=== PATIENT | male | born 1950 | race Caucasian/White ===

== ENCOUNTER 2019-04-04 06:47 | Day surgery (SDC) | payer MEDICARE, OTHER ==
[2019-04-04] MEDS ORDERED: Propofol 200 MG/20 ML SDV ONE (06:56)
[2019-04-04] MEDS ORDERED: fentaNYL 100 MCG/2 ML SDV ONE (06:56)
[2019-04-04] MEDS ORDERED: Midazolam 1 MG/ML 2 ML SDV ONE (06:56)
[2019-04-04] MEDS ORDERED: Dextrose 5%-Lactated Ringers 1,000 ML IV SCH (07:45)
[2019-04-04 09:59] VITALS: BP 112/73; PULSE 68
--- NOTE | 2019-04-11 11:32 | OR ---
DATE OF PROCEDURE: 04/04/2019 SURGEON: Dru Agudelo MD PREOPERATIVE DIAGNOSIS: History of colon polyps with indications for screening colonoscopy. POSTOPERATIVE DIAGNOSES: 1. History of colon polyps with indications for screening colonoscopy. 2. No recurrent colonic pathology identified. OPERATIVE PROCEDURE: Screening colonoscopy. ANESTHESIA: IV sedation. INDICATION FOR PROCEDURE: This is a 68-year-old male presenting with indications for screening colonoscopy. He has personal history of colon polyps in the past. Plan is to proceed with a colonoscopy with biopsies and/or polypectomy as indicated. Potential risks including bleeding and perforation were discussed, and the patient wishes to proceed. DETAILS OF PROCEDURE: The patient was taken to the operating room and placed in a left lateral decubitus position. IV sedation was administered, after which the initial digital rectal exam was performed and was unremarkable. Colonoscope was then passed into the rectum with retroflexion revealing uncomplicated hemorrhoidal columns. The scope was eventually passed to the cecum. The prep was fairly good with a small amount of liquid and some scattered solid stool present. To that level, no abnormalities were noted, specifically there were no diverticular disease, no areas of colitis, and no polyps or additional signs of neoplasia. Scope was then withdrawn, the above findings reconfirmed, and the procedure then concluded. Given the patient's personal history of colon polyps, next colonoscopy should be planned in 5 years. Dru Agudelo MD /[id number]
== END 2019-04-04 09:59 | disposition home or self-care (01) ==
LOC: JP.SDS 06:47
PROVIDERS: ATTEND Surgery
DX: Z12.11 Encounter for screening for malignant neoplasm of colon (principal); E78.5 Hyperlipidemia, unspecified; K64.9 Unspecified hemorrhoids; R73.01 Impaired fasting glucose; Z86.010 Personal history of colon polyps
CPT/HCPCS: G0121; J2250; J2704; J3010; J7121

== ENCOUNTER 2019-05-02 07:34 | Day surgery (SDC) | payer MEDICARE ==
[2019-05-02] MEDS ORDERED: Propofol 200 MG/20 ML SDV ONE ×4 (07:59→10:07)
[2019-05-02] MEDS ORDERED: fentaNYL 100 MCG/2 ML SDV ONE (07:59)
[2019-05-02] MEDS ORDERED: Midazolam 1 MG/ML 2 ML SDV ONE (07:59)
[2019-05-02] MEDS ORDERED: Dextrose 5%-Lactated Ringers 1,000 ML IV SCH (08:00)
[2019-05-02] MEDS ORDERED: Acetaminophen 500 MG Tab PO ONE (08:15)
[2019-05-02] MEDS ORDERED: Lidocaine 1% with EPINEPHrine 1:100,000 50 ML MDV ONE (08:18)
[2019-05-02] MEDS ORDERED: Bupivacaine 0.5% 50 ML MDV ONE (08:18)
[2019-05-02] MEDS ORDERED: ceFAZolin 2 GM in Premix Bag 1 BAG IV ONE (08:30)
[2019-05-02] MEDS ORDERED: Ketamine 50 MG in Sodium Chloride 0.9% 49.5 ML IV SCH (09:00)
[2019-05-02] MEDS ORDERED: Ropivacaine 46 ML, dexAMETHasone 8 MG, EPINEPHrine 0.4 MG, Sodium Chloride 0.9% 31.6 ML NERVRT SCH ×4 (09:00)
[2019-05-02] MEDS ORDERED: Ketamine 500 MG/5 ML MDV IV SCH (09:00)
[2019-05-02] MEDS ORDERED: Ketorolac 60 MG/2 ML SDV ONE (09:34)
[2019-05-02] MEDS ORDERED: Acetaminophen/oxyCODONE 325-5 MG Tab PO PRN (11:30)
[2019-05-02 12:20] VITALS: BP 116/61; PULSE 65
--- NOTE | 2019-05-09 08:51 | OR ---
DATE OF PROCEDURE: 05/02/2019 SURGEON: Dru Agudelo MD PREOPERATIVE DIAGNOSIS: Right inguinal hernia. POSTOPERATIVE DIAGNOSES: 1. Combined small indirect and prolonged direct right inguinal hernia. 2. 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 OPERATIVE PROCEDURE: Right inguinal exploration with: 1. Repair of right inguinal hernia with mesh (08222). 2. Excision of portion of right ilioinguinal nerve (34667). 3. Excision of portion of right iliohypogastric nerve (43178). ANESTHESIA: Local plus IV sedation. SCOOPING MACHINE TENDER: Bernadette Calvert PA-C INDICATIONS FOR PROCEDURE: This is a 68-year-old male presenting with an increasingly symptomatic right inguinal hernia. Plan is to proceed with a repair with a mesh plug technique. Potential risks of the procedure, including bleeding, infection, injury to underlying viscera, problems with hernia recurring or the mesh becoming infected were reviewed. That we often will divide the nerves in the area to avoid problems with chronic pain secondary to entrapment of those nerves by scar, which would result in some areas of cutaneous anesthesia was also reviewed with the patient, and he wishes to proceed. DETAILS OF PROCEDURE: Patient was taken to the operating room and placed in a supine position. After IV sedation was administered, the right inguinal area was anesthetized with 1% lidocaine mixed with Marcaine. A standard right inguinal incision was made and carried down through the skin and subcutaneous tissue and through the external oblique aponeurosis. Subaponeurotic flaps were then raised superiorly and inferiorly. Both the ilioinguinal nerve and iliohypogastric nerves were in the field, which would be separately covered by the flat portion of mesh plug system and would therefore be at risk for entrapment by scar, resulting in chronic pain. A portion of each of these nerves were then excised with the lateral extent of excision being the far lateral aspect of the incision. The cord structures were then mobilized upward. The patient was noted to have broad direct inguinal hernia and a smaller indirect hernia. The indirect hernia was dissected back down to the level of the internal ring, where it was easily turned inward. Transversalis fascia over the direct portion of the hernia was incised, and dissection of the conjoint tendon laterally, superiorly and inferiorly was undertaken. An extra-large mesh plug was placed into the direct portion of the hernia and affixed to the Tristian's ligament with some titanium tacking screws and affixed to the underside of the conjoint tendon medially, superiorly and laterally with horizontal mattress sutures of 0 Vicryl stitch. This appeared to cover the area of the indirect hernia satisfactorily as well. The conjoint tendon was then affixed to the shelving portion of the inguinal ligament with running 0 Vicryl stitch. The flat portion of mesh plug system was then placed on the inguinal floor and affixed to the pubic tubercle medially with titanium tacking screws and sutured lateral to the cord structures with 4-0 Vicryl stitch. The external oblique aponeurosis was approximated with some 4-0 Vicryl stitch, as was subcutaneous tissue, and the skin closed with 4-0 Vicryl subcuticular stitch. Dressing was applied. The patient was taken to the recovery room in satisfactory condition. There were no evident complications. Physician esl instructional assistant, Bernadette Calvert, played an essential role in assisting in this case helping to position the patient, retract structures as needed, as well as suturing and cutting sutures when indicated. Her presence improved patient safety and decreased operative time. Dru Agudelo MD /[id number]
== END 2019-05-02 12:45 | disposition home or self-care (01) ==
LOC: JP.SDS 07:34
PROVIDERS: ATTEND Surgery
DX: K40.90 Unilateral inguinal hernia, without obstruction or gangrene, not specified as recurrent (principal); G89.29 Other chronic pain
CPT/HCPCS: 88302; A9270-GY; C1713; C1781; J0690; J1885; J2250; J2704; J3010; J3490; J7121

== ENCOUNTER 2024-04-23 21:10 | Inpatient (IN) | payer MEDICARE ==
[2024-04-23 22:08] LABS: BASOPHILS ABSOLUTE AUTO 0.05 K/uL (0.00-0.10); BASOPHILS PERCENT AUTO 0.4 % (0.1-1.3); EOSINOPHILS ABSOLUTE AUTO 0.17 K/uL (0.00-0.40); EOSINOPHILS PERCENT AUTO 1.4 % (0.0-5.4); HEMATOCRIT 37.8 % (38.4-49.7); HEMOGLOBIN 12.6 g/dL (12.9-16.9); IMMATURE GRAN ABSOLUTE AUTO 0.03 K/uL (0.00-0.23); IMMATURE GRAN PERCENT AUTO 0.2 % (0.0-0.7); LYMPHOCYTES ABSOLUTE AUTO 0.89 K/uL (0.8-3.3); LYMPHOCYTES PERCENT AUTO 7.3 % (11.4-47.7); MEAN CORPUSCULAR HEMOGLOBIN 31.4 pg (31.6-35.5); MEAN CORPUSCULAR HGB CONC 33.3 g/dL (31.6-35.5); MEAN CORPUSCULAR VOLUME 94.3 fL (81.4-99.0); MONOCYTES ABSOLUTE AUTO 0.79 K/uL (0.20-0.90); MONOCYTES PERCENT AUTO 6.5 % (3.3-12.6); NEUTROPHILS ABSOLUTE AUTO 10.25 K/uL (1.0-7.6); NEUTROPHILS PERCENT AUTO 84.2 % (40.0-78.1); PLATELET COUNT,PLT 190 K/uL (130-375); RED BLOOD CELL COUNT 4.01 M/uL (4.14-5.76); WHITE BLOOD CELL COUNT,WBC 12.2 K/uL (3.2-11.0)
[2024-04-23 22:27] LABS: C-REACTIVE PROTEIN 1.43 mg/dL (<0.50)
[2024-04-23 22:32] LABS: A/G RATIO 1.2 (1.2-2.2); ALANINE AMINOTRANSFERASE,ALT 23 U/L (12-78); ALKALINE PHOSPHATASE 74 U/L (46-116); ASPARTATE AMNIOTRANSFERASE,AST 24 U/L (15-37); BILIRUBIN TOTAL 0.6 mg/dL (0.2-1.0); BLOOD UREA NITROGEN,BUN 18 mg/dL (7-18); CALCIUM 8.9 mg/dL (8.5-10.1); CARBON DIOXIDE,CO2 29 mmol/L (21-32); CHLORIDE,CL 101 mmol/L (100-108); CREATININE 1.1 mg/dL (0.8-1.3); EST CRCL DRUG DOSING (CG) 60.83 mL/min; ESTIMATED GFR 70 mL/min (>60); GLUCOSE RANDOM 108 mg/dL (74-106); POTASSIUM,K 4.3 mmol/L (3.6-5.2); PROTEIN TOTAL,TP 7.4 g/dL (6.4-8.2); SODIUM,NA 135 mmol/L (140-148); TROPONIN I HIGH SENSITIVITY 8.5 pg/mL (<=60.3)
[2024-04-23 22:37] LABS: ANION GAP 9.3 mmol/L (5.0-14.0)
[2024-04-23] MEDS ORDERED: Naloxone 0.4 MG/ML SDV IVPUSH PRN (22:51)
[2024-04-23] MEDS: HYDROmorphone 0.5 MG/0.5 ML Syringe IVPUSH ONE (23:08)
[2024-04-23] MEDS: Sodium Chloride 0.9% 100 ML IV SCH (23:18)
[2024-04-23] MEDS: Iopamidol 755 Mg/ML 100 ML Bottle IV ONE (23:18)
[2024-04-23] MEDS: Ketorolac 15 MG/ML SDV IVPUSH ONE (23:43)
[2024-04-24] MEDS ORDERED: Melatonin 3 MG Tab PO PRN (01:38)
[2024-04-24] MEDS ORDERED: Ondansetron 4 MG/2 ML SDV IV PRN (01:38)
[2024-04-24] MEDS ORDERED: Albuterol 0.083% 2.5 MG/3 ML Neb Soln NEB PRN (01:38)
[2024-04-24] MEDS ORDERED: Ondansetron 4 MG Tab.DIS PO PRN (01:38)
[2024-04-24] MEDS ORDERED: HYDROmorphone 1 MG/ML Syringe IVPUSH PRN (01:38)
[2024-04-24] MEDS: Sodium Chloride 0.9% 1,000 ML IV SCH (03:00)
[2024-04-24] MEDS: HYDROmorphone 0.5 MG/0.5 ML Syringe IVPUSH PRN (03:07)
[2024-04-24] MEDS: cefTRIAXone 1 GM in Sodium Chloride 0.9% 50 ML IV SCH (03:09)
[2024-04-24] MEDS: Apixaban 5 MG Tab PO SCH (03:12)
[2024-04-24] MEDS: Ondansetron 4 MG/2 ML SDV IVPUSH ONE (03:50)
[2024-04-24] MEDS: HYDROmorphone 0.5 MG/0.5 ML Syringe IM ONE (03:50)
[2024-04-24 05:44] LABS: HEMATOCRIT 34.4 % (38.4-49.7); HEMOGLOBIN 11.4 g/dL (12.9-16.9); MEAN CORPUSCULAR HEMOGLOBIN 31.5 pg (31.6-35.5); MEAN CORPUSCULAR HGB CONC 33.1 g/dL (31.6-35.5); RED BLOOD CELL COUNT 3.62 M/uL (4.14-5.76); WHITE BLOOD CELL COUNT,WBC 9.3 K/uL (3.2-11.0)
[2024-04-24 06:11] LABS: ANION GAP 4.4 mmol/L (5.0-14.0); CALCIUM 8.2 mg/dL (8.5-10.1); EST CRCL DRUG DOSING (CG) 66.92 mL/min; POTASSIUM,K 4.4 mmol/L (3.6-5.2)
[2024-04-24] MEDS: Pantoprazole 40 MG Tab.CR PO SCH (08:28)
[2024-04-24] MEDS: Lactobacillus Rhamnosus GG (Probiotic) Cap PO SCH (08:28)
[2024-04-24] MEDS: oxyCODONE 5 MG Tab PO PRN (10:07)
[2024-04-24] MEDS: Sodium Chloride 0.9% 80 ML IV SCH (10:31)
[2024-04-24] MEDS: Iopamidol 612 MG/ML 100 ML Bottle IV ONE (10:31)
[2024-04-24 12:05] LABS: APPEARANCE,URINE CLEAR (CLEAR); BILIRUBIN,URINE NEGATIVE (NEGATIVE); COLOR,URINE YELLOW (YELLOW); GLUCOSE,URINE NEGATIVE (NEGATIVE); KETONES,URINE NEGATIVE (NEGATIVE); LEUKOCYTE ESTERASE,URINE NEGATIVE (NEGATIVE); NITRITE,URINE NEGATIVE (NEGATIVE); OCCULT BLOOD,URINE NEGATIVE (NEGATIVE); PROTEIN,URINE NEGATIVE (NEGATIVE); UROBILINOGEN,URINE 0.2 EU/dL (0.2-1.0)
[2024-04-24 12:28] LABS: BACTERIA,URINE NOT SEEN; EPITHELIAL CELLS,URINE NOT SEEN; RBC,URINE NOT SEEN (0-5); WBC,URINE NOT SEEN (0-5)
[2024-04-24] MEDS: Allopurinol 100 MG Tab PO SCH (13:28)
[2024-04-24] MEDS: atorvaSTATin 20 MG Tab PO SCH (21:20)
[2024-04-24] MEDS: Sennosides/Docusate Sodium 50-8.6 MG Tab PO PRN (21:20)
[2024-04-24] MEDS: Acetaminophen 325 MG Tab PO PRN (23:06)
[2024-04-25] MEDS: cefTRIAXone 2 GM in Sodium Chloride 0.9% 50 ML IV SCH (03:04)
[2024-04-25 05:46] LABS: HEMATOCRIT 34.7 % (38.4-49.7); HEMOGLOBIN 11.5 g/dL (12.9-16.9); MEAN CORPUSCULAR HEMOGLOBIN 31.3 pg (31.6-35.5); MEAN CORPUSCULAR HGB CONC 33.1 g/dL (31.6-35.5); MEAN CORPUSCULAR VOLUME 94.3 fL (81.4-99.0); RED BLOOD CELL COUNT 3.68 M/uL (4.14-5.76); WHITE BLOOD CELL COUNT,WBC 6.9 K/uL (3.2-11.0)
[2024-04-25 06:05] LABS: ANION GAP 7.4 mmol/L (5.0-14.0); CALCIUM 8.9 mg/dL (8.5-10.1); CREATININE 0.9 mg/dL (0.8-1.3); EST CRCL DRUG DOSING (CG) 74.35 mL/min; POTASSIUM,K 4.5 mmol/L (3.6-5.2)
[2024-04-25] MEDS: Ampicillin/Sulbactam Na 1.5 GM in Sodium Chloride 0.9% 50 ML IV SCH (10:53)
[2024-04-26 11:29] VITALS: BP 104/65; PULSE 74
== END 2024-04-26 11:37 | disposition home or self-care (01) | DRG 177 ==
LOC: JP.ED 21:10 → JP.MS 04-24 01:07 → OBSVTOIN 04-24 09:44
PROVIDERS: ADMIT Registered Nurse; ATTEND Hospitalist
DX: J69.0 Pneumonitis due to inhalation of food and vomit (principal); I26.94 Multiple subsegmental thrombotic pulmonary emboli without acute cor pulmonale; J96.01 Acute respiratory failure with hypoxia; Z66 Do not resuscitate; M10.9 Gout, unspecified; R06.89 Other abnormalities of breathing; H54.7 Unspecified visual loss; M19.90 Unspecified osteoarthritis, unspecified site; E78.00 Pure hypercholesterolemia, unspecified; Z98.49 Cataract extraction status, unspecified eye; Z90.49 Acquired absence of other specified parts of digestive tract; Z86.16 Personal history of COVID-19; Z79.899 Other long term (current) drug therapy; Z87.891 Personal history of nicotine dependence
CPT/HCPCS: 36415 ×2; 70450; 71275; 80048; 80053; 83690; 83880; 84484 ×2; 85025; 85027; 85379; 86140; 93010; 96374; 96375; 99222; 99285; A9270 ×4; J0696; J1885; J7030; Q9967; 74177; 81001; 96361; 96365; 96376; 99232; 99238; G0378; J0295

== ENCOUNTER 2024-04-27 10:45 | Inpatient (IN) | payer MEDICARE ==
[2024-04-27 12:08] LABS: BASOPHILS ABSOLUTE AUTO 0.04 K/uL (0.00-0.10); BASOPHILS PERCENT AUTO 0.3 % (0.1-1.3); EOSINOPHILS ABSOLUTE AUTO 0.07 K/uL (0.00-0.40); EOSINOPHILS PERCENT AUTO 0.5 % (0.0-5.4); HEMOGLOBIN 12.4 g/dL (12.9-16.9); IMMATURE GRAN ABSOLUTE AUTO 0.05 K/uL (0.00-0.23); IMMATURE GRAN PERCENT AUTO 0.4 % (0.0-0.7); LYMPHOCYTES ABSOLUTE AUTO 0.76 K/uL (0.8-3.3); LYMPHOCYTES PERCENT AUTO 5.9 % (11.4-47.7); MEAN CORPUSCULAR HEMOGLOBIN 31.7 pg (31.6-35.5); MEAN CORPUSCULAR HGB CONC 34.4 g/dL (31.6-35.5); MEAN CORPUSCULAR VOLUME 92.1 fL (81.4-99.0); MONOCYTES ABSOLUTE AUTO 0.56 K/uL (0.20-0.90); MONOCYTES PERCENT AUTO 4.4 % (3.3-12.6); NEUTROPHILS ABSOLUTE AUTO 11.38 K/uL (1.0-7.6); NEUTROPHILS PERCENT AUTO 88.5 % (40.0-78.1); PLATELET COUNT,PLT 236 K/uL (130-375); RED BLOOD CELL COUNT 3.91 M/uL (4.14-5.76); WHITE BLOOD CELL COUNT,WBC 12.9 K/uL (3.2-11.0)
[2024-04-27 12:30] LABS: ALANINE AMINOTRANSFERASE,ALT 15 U/L (12-78); ALBUMIN 3.2 g/dL (3.4-5.0); ALKALINE PHOSPHATASE 54 U/L (46-116); ANION GAP 12.3 mmol/L (5.0-14.0); ASPARTATE AMNIOTRANSFERASE,AST 17 U/L (15-37); BILIRUBIN TOTAL 0.9 mg/dL (0.2-1.0); BLOOD UREA NITROGEN,BUN 17 mg/dL (7-18); CALCIUM 9.3 mg/dL (8.5-10.1); CARBON DIOXIDE,CO2 25 mmol/L (21-32); CHLORIDE,CL 105 mmol/L (100-108); CREATININE 1.1 mg/dL (0.8-1.3); EST CRCL DRUG DOSING (CG) 60.83 mL/min; ESTIMATED GFR 70 mL/min (>60); GLUCOSE RANDOM 122 mg/dL (74-106); POTASSIUM,K 4.3 mmol/L (3.6-5.2); PROTEIN TOTAL,TP 6.5 g/dL (6.4-8.2); SODIUM,NA 138 mmol/L (140-148)
[2024-04-27] MEDS: Piperacillin/Tazobactam 4.5 GM in Sodium Chloride 0.9% 100 ML IV ONE (13:51)
[2024-04-27] MEDS: Doxycycline 100 MG in Sodium Chloride 0.9% 100 ML IV SCH (15:34)
[2024-04-27] MEDS ORDERED: Albuterol 0.083% 2.5 MG/3 ML Neb Soln NEB PRN (15:36)
[2024-04-27] MEDS ORDERED: Ondansetron 4 MG/2 ML SDV IV PRN (15:36)
[2024-04-27] MEDS ORDERED: Sodium Chloride 0.9% 10 ML Syringe FLUSH PRN (15:36)
[2024-04-27] MEDS: Allopurinol 100 MG Tab PO SCH (16:38)
[2024-04-27] MEDS: Acetaminophen 325 MG Tab PO PRN (17:28)
[2024-04-27] MEDS: Piperacillin/Tazobactam/Dext 4.5 GM in Premix Bag 1 BAG IV SCH (17:29)
[2024-04-27] MEDS: atorvaSTATin 20 MG Tab PO SCH (20:22)
[2024-04-27] MEDS: Apixaban 5 MG Tab PO SCH (20:22)
[2024-04-28 06:17] LABS: BASOPHILS ABSOLUTE AUTO 0.06 K/uL (0.00-0.10); EOSINOPHILS ABSOLUTE AUTO 0.43 K/uL (0.00-0.40); EOSINOPHILS PERCENT AUTO 7.3 % (0.0-5.4); HEMATOCRIT 34.7 % (38.4-49.7); HEMOGLOBIN 11.7 g/dL (12.9-16.9); IMMATURE GRAN PERCENT AUTO 0.2 % (0.0-0.7); LYMPHOCYTES ABSOLUTE AUTO 1.29 K/uL (0.8-3.3); LYMPHOCYTES PERCENT AUTO 21.9 % (11.4-47.7); MEAN CORPUSCULAR HEMOGLOBIN 31.6 pg (31.6-35.5); MEAN CORPUSCULAR HGB CONC 33.7 g/dL (31.6-35.5); MEAN CORPUSCULAR VOLUME 93.8 fL (81.4-99.0); MONOCYTES ABSOLUTE AUTO 0.47 K/uL (0.20-0.90); NEUTROPHILS ABSOLUTE AUTO 3.64 K/uL (1.0-7.6); NEUTROPHILS PERCENT AUTO 61.6 % (40.0-78.1); PLATELET COUNT,PLT 220 K/uL (130-375); WHITE BLOOD CELL COUNT,WBC 5.9 K/uL (3.2-11.0)
[2024-04-28 06:24] LABS: IMMATURE GRAN ABSOLUTE AUTO 0.01 K/uL (0.00-0.23)
[2024-04-28] MEDS: Doxycycline 100 MG in Sodium Chloride 0.9% 100 ML IV SCH (06:26)
[2024-04-28 06:37] LABS: ANION GAP 5.9 mmol/L (5.0-14.0); CALCIUM 9.6 mg/dL (8.5-10.1); EST CRCL DRUG DOSING (CG) 66.92 mL/min; POTASSIUM,K 4.2 mmol/L (3.6-5.2)
[2024-04-28] MEDS: Polyethylene Glycol 3350 Powder 17 GM Packet PO PRN (08:55)
[2024-04-28] MEDS: Polyethylene Glycol 3350 Powder 17 GM Packet PO ONE (14:40)
[2024-05-01 05:28] VITALS: BP 112/64; PULSE 66
[2024-05-01] MEDS: Apixaban 5 MG Tab PO SCH (08:37)
== END 2024-05-01 10:45 | disposition home or self-care (01) | DRG 177 ==
LOC: JP.ED 10:45 → JP.MS 14:40
PROVIDERS: ADMIT Nurse Practitioner; ATTEND Hospitalist
DX: J69.0 Pneumonitis due to inhalation of food and vomit (principal); I26.99 Other pulmonary embolism without acute cor pulmonale; J96.01 Acute respiratory failure with hypoxia; D72.829 Elevated white blood cell count, unspecified; J18.9 Pneumonia, unspecified organism; F15.90 Other stimulant use, unspecified, uncomplicated; H54.7 Unspecified visual loss; Z87.891 Personal history of nicotine dependence; E78.00 Pure hypercholesterolemia, unspecified; M10.9 Gout, unspecified; M19.90 Unspecified osteoarthritis, unspecified site; Z79.1 Long term (current) use of non-steroidal anti-inflammatories (NSAID); Z79.02 Long term (current) use of antithrombotics/antiplatelets; Z79.01 Long term (current) use of anticoagulants; Z87.81 Personal history of (healed) traumatic fracture; Z86.16 Personal history of COVID-19; Z98.49 Cataract extraction status, unspecified eye; Z90.89 Acquired absence of other organs; Z98.890 Other specified postprocedural states; Z79.899 Other long term (current) drug therapy
CPT/HCPCS: 36415; 71250; 71250-26; 80048; 80053; 83605; 85025; 93306; 96365; 99222; 99231; 99232; 99238; 99284; 99285-25; A9270-GY; J2543; J3490

== ENCOUNTER 2024-12-08 06:21 | Day surgery (SDC) | payer MEDICARE ==
[2024-12-08] MEDS: Lactated Ringers 1,000 ML IV SCH (06:58)
[2024-12-08] MEDS ORDERED: fentaNYL 50 MCG/ML SDV ONE (07:31)
[2024-12-08] MEDS ORDERED: Propofol 200 MG/20 ML SDV ONE (07:31)
[2024-12-08 09:09] VITALS: BP 127/74; PULSE 66
== END 2024-12-08 09:09 | disposition home or self-care (01) ==
LOC: JP.SDS 06:21
PROVIDERS: ATTEND Surgery
DX: Z12.11 Encounter for screening for malignant neoplasm of colon (principal); Z87.891 Personal history of nicotine dependence; Z79.899 Other long term (current) drug therapy
CPT/HCPCS: G0121; J2704; J3010; J7120